=== PATIENT | male | born 1965 | race Caucasian/White ===

== ENCOUNTER 2023-12-10 15:00 | Observation (INO) ==
[2023-12-10 15:30] LABS: ABS Basophils 0.1 10^3/uL (0.0-0.1); ABS Monocytes 0.7 10^3/uL (0.0-1.1); ABS Neutrophils 8.2 10^3/uL (1.5-7.6); ABS Nucleated RBC 0.01 10^3/ul; Eosinophil % 0.3 %; Hematocrit 54.2 % (38-53); Hemoglobin 18.5 g/dL (13.2-16.3); Lymphocyte % 9.7 %; Mean Corpuscular Hemoglobin 32.5 pg (27-33); Mean Corpuscular Hgb Conc 34.2 g/dL (31-36); Mean Platelet Volume 8.2 fL (7.5-11.2); Nucleated Red Blood Cells % 0.1 %/100WBC (0.0-0.8); Platelet Count 268 10^3/uL (150-450); Red Cell Distribution Width 14.8 % (12-17)
[2023-12-10 15:44] LABS: INR 1.04 (0.85-1.14)
[2023-12-10 16:23] LABS: Albumin 4.2 g/dL (3.2-5.2); Albumin/Globulin Ratio 1.4 (1-3); Calcium 8.8 mg/dL (8.6-10.3); Creatinine, Serum 0.9 mg/dL (0.67-1.17); Potassium 4.6 mmol/L (3.5-5.0); Total Bilirubin 1.4 mg/dL (0.2-1.0); Total Protein 7.2 g/dL (6.4-8.9); eGFR CKD-EPI 99.6 (>60)
[2023-12-10] MEDS: Lactated Ringers 1000 ml BAG 1,000 ML IV ONE ×2 (16:33→19:11)
[2023-12-10 16:53] LABS: Venous Bicarbonate HCO3 14.9 mmol/L (24-28)
[2023-12-10] MEDS: Albuterol HFA INHALER 8 gm MDI INH ONE (17:11)
[2023-12-10] MEDS: Ondansetron 4 mg VIAL 2 MG/ML 2 ml VIAL IV ONE (17:17)
[2023-12-10 17:21] LABS: High Sensitivity Troponin 1 Hr 11 pg/mL (<20)
[2023-12-10] MEDS ORDERED: Lorazepam PYXIS KEY PRN (17:24)
[2023-12-10] MEDS: LORazepam 2 mg VIAL 1 ml IV PUSH ONE (17:38)
[2023-12-10] MEDS: LORazepam 2 mg VIAL 1 ml IV PUSH SCH ×2 (19:35→23:32)
[2023-12-10] MEDS: Iohexol 350 (CONTRAST) 500 ML MDV IV ONE (20:32)
[2023-12-10] MEDS: Multivitamins/Minerals TAB PO SCH (21:22)
[2023-12-10] MEDS: Thiamine 100 MG/ML 2 ml VIAL (200 mg) IM ONE (21:22)
[2023-12-10] MEDS: Enoxaparin 40 MG/0.4 ML SYR SUBCUT SCH (23:18)
[2023-12-10 23:57] LABS: INR 1.07 (0.85-1.14)
[2023-12-11] MEDS: Al Hydrox/Mg Hydrox/Simet LIQ 30 ML UDC PO ONE (00:34)
[2023-12-11] MEDS: Pantoprazole VIAL 40 MG VIAL IV ONE (00:37)
[2023-12-11] MEDS: Remdesivir 100 mg Vial 200 MG in NS 0.9% 250 ml 210 ML IV ONE (00:56)
[2023-12-11] MEDS: NS 0.9% 1000 ml BAG 1,000 ML IV ONE (00:57)
[2023-12-11 01:05] LABS: Calcium 8.3 mg/dL (8.6-10.3); Creatinine, Serum 0.88 mg/dL (0.67-1.17); Potassium 4.7 mmol/L (3.5-5.0); eGFR CKD-EPI 100.3 (>60)
[2023-12-11 03:13] LABS: Urine Appearance Clear; Urine Bacteria Absent /HPF (Absent); Urine Bilirubin Negative (Negative); Urine Blood Negative (Negative); Urine Color Yellow; Urine Glucose Negative (Negative); Urine Ketones 4+ (Negative); Urine Nitrite Negative (Negative); Urine Protein 1+ (>=30 mg/dL) (Negative); Urine Red Blood Cell Trace(0-2/hpf) /HPF (0-Trace); Urine Specific Gravity >1.050 (1.002-1.030); Urine Urobilinogen Negative (Negative); Urine White Blood Cell Trace(0-5/hpf) /HPF (0-Trace)
[2023-12-11] MEDS: methylPREDNISolone SOD SUCC 40 mg/ml 1 ml VIAL IV SCH (04:06)
[2023-12-11] MEDS: Calcium Carb (TUMS) 500 mg CHEW TAB PO ONE (04:06)
[2023-12-11 04:30] LABS: ABS Lymphocytes 0.5 10^3/uL (1.0-4.8); ABS Monocytes 0.3 10^3/uL (0.0-1.1); Hematocrit 45.3 % (38-53); Hemoglobin 15.3 g/dL (13.2-16.3); Lymphocyte % 10.9 %; Mean Corpuscular Hgb Conc 33.9 g/dL (31-36); Mean Corpuscular Volume 94.4 fL (80-97); Mean Platelet Volume 8.1 fL (7.5-11.2); Nucleated Red Blood Cells % 0.1 %/100WBC (0.0-0.8); Platelet Count 211 10^3/uL (150-450); Red Cell Distribution Width 14.6 % (12-17); White Blood Count 4.8 10^3/uL (3.6-10.2)
[2023-12-11 04:34] LABS: INR 1.23 (0.85-1.14)
[2023-12-11 05:09] LABS: Albumin 3.3 g/dL (3.2-5.2); Albumin/Globulin Ratio 1.6 (1-3); Calcium 7.2 mg/dL (8.6-10.3); Creatinine, Serum 0.73 mg/dL (0.67-1.17); Globulin 2.1 g/dL (2-4); Magnesium 1.7 mg/dL (1.9-2.7); Potassium 4.2 mmol/L (3.5-5.0); Total Protein 5.4 g/dL (6.4-8.9); eGFR CKD-EPI 106.1 (>60)
[2023-12-11] MEDS: Mometasone/Formoter 200/5 MDI INH SCH (09:31)
[2023-12-11] MEDS ORDERED: Nicotine PATCH 7 MG/24 HR PATCH TRANSDERM SCH (19:00)
[2023-12-11] MEDS: Nicotine PATCH 7 MG/24 HR PATCH TRANSDERM SCH (19:24)
[2023-12-11] MEDS: Albuterol HFA INHALER 8 gm MDI INH PRN (20:44)
[2023-12-11] MEDS: Ondansetron 4 mg VIAL 2 MG/ML 2 ml VIAL IV PRN (20:44)
[2023-12-11] MEDS: Remdesivir 100 mg Vial 100 MG in NS 0.9% 250 ml 230 ML IV SCH (20:47)
[2023-12-11] MEDS ORDERED: Remdesivir 100 mg Vial 100 MG in NS 0.9% 250 ml 230 ML IV SCH (21:00)
[2023-12-12 08:31] LABS: ABS Basophils 0.1 10^3/uL (0.0-0.1); ABS Lymphocytes 0.6 10^3/uL (1.0-4.8); ABS Monocytes 0.5 10^3/uL (0.0-1.1); ABS Neutrophils 7.3 10^3/uL (1.5-7.6); ABS Nucleated RBC 0.01 10^3/ul; Eosinophil % 0.1 %; Hemoglobin 15.4 g/dL (13.2-16.3); Lymphocyte % 6.8 %; Mean Corpuscular Hemoglobin 32.6 pg (27-33); Mean Corpuscular Hgb Conc 34.2 g/dL (31-36); Mean Corpuscular Volume 95.5 fL (80-97); Nucleated Red Blood Cells % 0.1 %/100WBC (0.0-0.8); Platelet Count 179 10^3/uL (150-450); Red Blood Count 4.71 10^6/uL (4.06-5.63); Red Cell Distribution Width 14.4 % (12-17); White Blood Count 8.4 10^3/uL (3.6-10.2)
[2023-12-12 09:31] LABS: Albumin 3.5 g/dL (3.2-5.2); Albumin/Globulin Ratio 1.5 (1-3); Calcium 8.1 mg/dL (8.6-10.3); Creatinine, Serum 0.77 mg/dL (0.67-1.17); Globulin 2.3 g/dL (2-4); Potassium 4.4 mmol/L (3.5-5.0); Total Bilirubin 0.7 mg/dL (0.2-1.0); Total Protein 5.8 g/dL (6.4-8.9); eGFR CKD-EPI 104.4 (>60)
[2023-12-12 10:37] VITALS: BP 134/89
[2023-12-12] MEDS: Influenza Vaccine *TRI* 2024-25* 0.5 ML SYRINGE IM ONE (12:57)
== END 2023-12-12 14:10 | disposition home or self-care (01) ==
LOC: ED 15:00 → EDHOLD 15:00 → MED 12-11 08:43
PROVIDERS: ADMIT Internal Medicine; ATTEND Hospitalist

== ENCOUNTER 2024-01-02 21:46 | Observation (INO) ==
[2024-01-02 23:56] LABS: ABS Lymphocytes 1.5 10^3/uL (1.0-4.8); ABS Monocytes 0.5 10^3/uL (0.0-1.1); ABS Neutrophils 3.9 10^3/uL (1.5-7.6); ABS Nucleated RBC 0.01 10^3/ul; Eosinophil % 0.7 %; Hematocrit 42.7 % (38-53); Hemoglobin 14.5 g/dL (13.2-16.3); Lymphocyte % 25.5 %; Mean Corpuscular Hemoglobin 32.3 pg (27-33); Mean Corpuscular Hgb Conc 33.9 g/dL (31-36); Mean Platelet Volume 8.7 fL (7.5-11.2); Nucleated Red Blood Cells % 0.2 %/100WBC (0.0-0.8); Platelet Count 249 10^3/uL (150-450); Red Blood Count 4.49 10^6/uL (4.06-5.63); Red Cell Distribution Width 14.1 % (12-17)
[2024-01-03 00:16] LABS: Urine Benzodiazepine Screen Presumptive Positive (None Detect); Urine Cannabinoids Screen None Detected (None Detect); Urine Opiates Screen None Detected (None Detect)
[2024-01-03 00:19] LABS: INR 0.92 (0.85-1.14)
[2024-01-03 00:31] LABS: Acetaminophen < 15 mcg/mL; Albumin 4.1 g/dL (3.2-5.2); Albumin/Globulin Ratio 1.7 (1-3); Alcohol, S 232 mg/dL (<13); Calcium 9.3 mg/dL (8.6-10.3); Creatinine, Serum 0.8 mg/dL (0.67-1.17); Globulin 2.4 g/dL (2-4); Potassium 3.8 mmol/L (3.5-5.0); Salicylate < 2.50 mg/dL (<30); Total Bilirubin 0.5 mg/dL (0.2-1.0); Total Protein 6.5 g/dL (6.4-8.9); eGFR CKD-EPI 103.2 (>60)
[2024-01-03 00:38] LABS: High Sensitivity Troponin 1 Hr 4 pg/mL (<20)
[2024-01-03 00:58] LABS: Folate 8.35 ng/mL (5.90-24.80)
[2024-01-03 00:59] LABS: Vitamin B12 362 pg/mL (180-914)
[2024-01-03] MEDS: Lactated Ringers SEPSIS* BAG 2,190 ML IV ONE (01:30)
[2024-01-03] MEDS ORDERED: Albuterol HFA INHALER 8 gm MDI INH PRN (03:22)
[2024-01-03] MEDS: Multivitamins/Minerals TAB PO SCH (04:14)
[2024-01-03] MEDS: Albuterol HFA INHALER 8 gm MDI INH PRN (04:14)
[2024-01-03] MEDS: Thiamine 100 MG/ML 2 ml VIAL (200 mg) IM ONE (04:17)
[2024-01-03] MEDS: Mometasone/Formoter 200/5 MDI INH SCH (05:38)
[2024-01-03 07:05] LABS: Hemoglobin 12.6 g/dL (13.2-16.3); Mean Corpuscular Hemoglobin 32.4 pg (27-33); Mean Corpuscular Hgb Conc 34.1 g/dL (31-36); Mean Corpuscular Volume 95.1 fL (80-97); Mean Platelet Volume 8.3 fL (7.5-11.2); Platelet Count 199 10^3/uL (150-450); Red Blood Count 3.89 10^6/uL (4.06-5.63); Red Cell Distribution Width 14.2 % (12-17); White Blood Count 4.7 10^3/uL (3.6-10.2)
[2024-01-03] MEDS: Albuterol/Ipratropium NEB.SOL (2.5/0.5 MG) 3 ML NEB.SOLN INH SCH ×2 (07:10→12:14)
[2024-01-03 07:55] LABS: Calcium 8.3 mg/dL (8.6-10.3); Creatinine, Serum 0.77 mg/dL (0.67-1.17); Magnesium 1.6 mg/dL (1.9-2.7); Potassium 3.9 mmol/L (3.5-5.0); eGFR CKD-EPI 104.4 (>60)
[2024-01-03] MEDS: Enoxaparin 40 MG/0.4 ML SYR SUBCUT SCH (09:06)
[2024-01-03] MEDS: Ondansetron 4 mg VIAL 2 MG/ML 2 ml VIAL IV PRN (10:42)
[2024-01-03] MEDS: diazePAM INJ CARPUJECT 5 MG/ML SYRINGE IV SCH (10:42)
[2024-01-03 14:37] VITALS: BP 149/98
== END 2024-01-03 15:39 | disposition left against medical advice (07) ==
LOC: EDHOLD 21:46 → ED 21:46 → MERGE 01-03 02:43 → SUATTDRO 01-03 02:43 → MEDTELE 01-03 05:57
PROVIDERS: ADMIT Student in an Organized Health Care Education/Training Program; ATTEND Internal Medicine